=== PATIENT | female | born 1990 | race African-American/Black ===

== ENCOUNTER 2018-12-20 11:57 | Emergency (ER) | payer SELFPAY | END 2018-12-20 13:41 | disposition home or self-care (01) | LOC: ERS 11:57 | DX: J06.9 Acute upper respiratory infection, unspecified (principal) | CPT/HCPCS: 87804; 99283 ==

== ENCOUNTER 2020-05-11 08:25 | Emergency (ER) | payer SELFPAY ==
[2020-05-11] MEDS ORDERED: Ketorolac Tromethamine 30 MG/ML VIAL ONE (09:41)
== END 2020-05-11 10:19 | disposition home or self-care (01) ==
LOC: ERS 08:25
DX: M89.9 Disorder of bone, unspecified (principal)
CPT/HCPCS: 96372; J1885